=== PATIENT | female | born 1990 | race African-American/Black ===

== ENCOUNTER 2018-07-15 17:03 | Emergency (ER) | payer SELFPAY ==
[2018-07-15 17:44] LABS: #Lymphocytes 1.1 thou/uL (1.20-3.40); #Monocytes 0.4 thou/uL (0.11-0.59); %Basophils 0.3 % (0.0-1.0); %Eosinophils 0.1 % (0.0-10.0); %Lymphocytes 11.4 % (21.0-51.0); %Monocytes 4.5 % (0.0-10.0); %Neutrophils 83.7 % (42.0-75.0); Hemoglobin 13.5 g/dL (12.0-16.0); Mean Corpuscular HGB CONC 33.4 g/dL (32.0-36.0); Mean Corpuscular Hemoglobin 28.7 pg (27.0-31.0); Mean Corpuscular Volume 86.1 fL (78.0-98.0); Mean Platelet Volume 8.4 fL (7.4-10.4); Platelet Count 260 thou/uL (130-400); RBC Distribution Width 13.6 % (11.5-14.5); White Blood Cell (WBC) Count 9.5 thou/uL (4.8-10.8)
[2018-07-15 18:07] LABS: ALT (SGPT) 18 U/L (8-55); AST (SGOT) 17 U/L (5-34); Albumin 4.2 g/dL (3.5-5.0); Alkaline Phosphatase 64 U/L (40-150); Anion Gap 14 mmol/L (10-20); BUN (Urea Nitrogen) 10 mg/dL (7.0-18.7); Bilirubin, Total 0.3 mg/dL (0.2-1.2); Calc. Creatinine Clearance 0 mL/min (70-130); Calcium 9.8 mg/dL (7.8-10.44); Carbon Dioxide 20 mmol/L (22-29); Chloride 109 mmol/L (98-107); Estimated GFR-MDRD Greater than 90; Globulin 3.9 g/dL (2.4-3.5); Glucose 121 mg/dL (70-105); Lipase 14 U/L (8-78); Potassium 3.9 mmol/L (3.5-5.1); Protein, Total 8.1 g/dL (6.0-8.3); Sodium 139 mmol/L (136-145)
[2018-07-15] MEDS ORDERED: Ondansetron HCl/PF 4 MG/2 ML Vial ONE (19:13)
[2018-07-15 19:14] LABS: Bilirubin Negative (Negative); Blood, Urine Negative (Negative); Clarity CLOUDY (Clear); Glucose, Urine (Dipstick) Negative (Negative); Leukocyte Trace (Negative); Nitrite Negative (Negative); Protein, Urine (Dipstick) Trace mg/dL (Neg-Trace); Specific Gravity, Urine 1.026 (1.002-1.036)
[2018-07-15 19:16] LABS: Bacteria/HPF 1+ HPF (None Seen); Hyaline Casts/LPF 4-6 HYALINE CAST LPF (0-3 Hyaline); Pathc Cast-AUWi Flag 1.01 (0-2.49); WBC/HPF 21-50 HPF (0-3)
[2018-07-15 19:18] LABS: Pregnancy Test - Urine (BHCG) Negative (Negative); Pregu Control Background? CLEAR/WHITE (CLR/WHITE); Pregu Control Bar Appear? YES (CONTROL BAR); Specific Gravity 1.026 (1.002-1.036); Yeast-AUWi Flag 158.7 (0-25.0)
[2018-07-15 19:27] LABS: Yeast-All Forms None Seen HPF (None Seen)
[2018-07-15] MEDS ORDERED: Lidocaine Viscous Sol 2% 15 ml UD Cup ONE (19:32)
[2018-07-15] MEDS ORDERED: Mag-Al 1200 mg/1200 mg/30 ML UDCUP ONE (19:32)
--- NOTE | 2018-07-15 22:04 | ULT ---
SONOGRAM RIGHT UPPER QUADRANT 07/15/18 HISTORY: Right upper quadrant pain. FINDINGS: Multiple shadowing stones are apparent within the dependent portion of the gallbladder lumen. There i s no gallbladder wall thickening or pericholecystic fluid. Common duct is 0.5 cm. Liver is heterogene ous and echogenic without focal mass or intrahepatic biliary dilatation. No free fluid. IMPRESSION: Cholelithiasis. No evidence of acute biliary obstruction. Hepatic steatosis. POS: [facility]
[2018-07-15] MEDS ORDERED: Morphine 4 MG/ML VIAL ONE (23:03)
== END 2018-07-15 23:09 | disposition home or self-care (01) ==
LOC: ERS 17:03
DX: K80.20 Calculus of gallbladder without cholecystitis without obstruction (principal)
CPT/HCPCS: 36415; 76705; 80053; 81003; 81015; 81025; 83690; 85025; 93005; 96361; 96374; 96375; 96376; J2270; J2405

== ENCOUNTER 2018-09-03 18:38 | Emergency (ER) | payer SELFPAY ==
[2018-09-03 19:15] LABS: #Monocytes 0.6 thou/uL (0.11-0.59); #Neutrophils 5.4 thou/uL (1.40-6.50); %Basophils 0.5 % (0.0-1.0); %Eosinophils 0.5 % (0.0-10.0); %Lymphocytes 33.2 % (21.0-51.0); %Monocytes 6.6 % (0.0-10.0); %Neutrophils 59.2 % (42.0-75.0); Hemoglobin 13.2 g/dL (12.0-16.0); Mean Corpuscular HGB CONC 32.3 g/dL (32.0-36.0); Mean Corpuscular Hemoglobin 28.4 pg (27.0-31.0); Mean Platelet Volume 8.4 fL (7.4-10.4); Platelet Count 307 thou/uL (130-400); RBC Distribution Width 13.1 % (11.5-14.5); Red Blood Cell (RBC) Count 4.66 mill/uL (4.20-5.40); White Blood Cell (WBC) Count 9.1 thou/uL (4.8-10.8)
[2018-09-03 19:38] LABS: ALT (SGPT) 14 U/L (8-55); AST (SGOT) 16 U/L (5-34); Albumin 3.7 g/dL (3.5-5.0); Alkaline Phosphatase 66 U/L (40-150); Anion Gap 11 mmol/L (10-20); BUN (Urea Nitrogen) 8 mg/dL (7.0-18.7); Bilirubin, Total 0.5 mg/dL (0.2-1.2); Calc. Creatinine Clearance 0 mL/min (70-130); Calcium 9.4 mg/dL (7.8-10.44); Carbon Dioxide 25 mmol/L (22-29); Chloride 106 mmol/L (98-107); Estimated GFR-MDRD Greater than 90; Globulin 3.6 g/dL (2.4-3.5); Glucose 101 mg/dL (70-105); Lipase 28 U/L (8-78); Protein, Total 7.3 g/dL (6.0-8.3); Sodium 138 mmol/L (136-145)
[2018-09-03 19:41] LABS: BHCG - Serum Negative (NEGATIVE); Pregs Control Background? CLEAR/WHITE (CLR/WHITE); Pregs Control Bar Appear? YES (CONTROL BAR)
[2018-09-03] MEDS ORDERED: Ondansetron HCl/PF 4 MG/2 ML Vial ONE (19:45)
[2018-09-03] MEDS ORDERED: Ketorolac Tromethamine 30 MG/ML VIAL ONE (19:45)
[2018-09-03 20:06] LABS: Bilirubin Negative (Negative); Blood, Urine Negative (Negative); Clarity CLOUDY (Clear); Glucose, Urine (Dipstick) Negative (Negative); Leukocyte Trace (Negative); Nitrite Negative (Negative); Protein, Urine (Dipstick) Negative (Neg-Trace); Specific Gravity, Urine 1.015 (1.002-1.036); Urobilinogen 0.2 mg/dL (0.2-1.0); pH, Urine 7.5 (5.0-9.0)
[2018-09-03 20:08] LABS: Bacteria/HPF Rare-Few HPF (None Seen); Hyaline Casts/LPF 0-3 HYALINE CAST LPF (0-3 Hyaline); Pathc Cast-AUWi Flag 0.14 (0-2.49)
--- NOTE | 2018-09-03 20:57 | RAD ---
CHEST ONE VIEW: 09/03/18 COMPARISON: None. HISTORY: Pain. Fever and chills. FINDINGS: Normal cardiac silhouette. The pulmonary vessels and hilum are normal. No consolidation or mass. No p neumothorax or osseous abnormalities. IMPRESSION: No acute cardiopulmonary process. POS: [facility]
[2018-09-03] MEDS ORDERED: Fentanyl 100 MCG/2 ML VIAL ONE (21:03)
--- NOTE | 2018-09-03 23:23 | ULT ---
RIGHT UPPER QUADRANT ULTRASOUND: 09/03/18 INDICATION: Right upper quadrant pain with history of cholelithiasis. COMPARISON: Prior exam dated 07/15/18. FINDINGS: Overlying bowel gas heavily limits image detail. There is diffuse fatty infiltration of the liver. Th ere is a contracted gallbladder with stones. A sonographic Palomares's sign is reported. Common bile alexus t measures 3.7 mm. Right kidney measures 10.5 cm in length. The pancreas is obscured. IMPRESSION: 1. Contracted gallbladder with stones. There is report of sonographic Palomares's sign. Image detai l is heavily limited on this examination due to body habitus and overlying bowel gas. If there is fur ther clinical concern for acute cholecystitis, a HIDA scan may be helpful. 2. Fatty liver. POS: [facility]
== END 2018-09-04 00:17 | disposition home or self-care (01) ==
LOC: ERS 18:38
DX: K80.10 Calculus of gallbladder with chronic cholecystitis without obstruction (principal); E66.9 Obesity, unspecified
CPT/HCPCS: 36415; 71045; 76705; 80053; 81003; 81015; 83605; 83690; 84703; 85025; 87040; 87086; 96361; 96374; 96375; J1885; J2405; J3010

== ENCOUNTER 2019-01-31 19:15 | Emergency (ER) | payer SELFPAY ==
[2019-01-31 19:42] LABS: #Basophils 0.1 thou/uL (0.0-0.2); #Lymphocytes 3.3 thou/uL (1.20-3.40); #Monocytes 0.7 thou/uL (0.11-0.59); #Neutrophils 6.9 thou/uL (1.40-6.50); %Basophils 0.6 % (0.0-1.0); %Eosinophils 0.2 % (0.0-10.0); %Monocytes 6.5 % (0.0-10.0); %Neutrophils 62.8 % (42.0-75.0); Hemoglobin 13.3 g/dL (12.0-16.0); Mean Corpuscular HGB CONC 32.3 g/dL (32.0-36.0); Mean Corpuscular Hemoglobin 28.2 pg (27.0-31.0); Mean Corpuscular Volume 87.2 fL (78.0-98.0); Platelet Count 327 thou/uL (130-400); RBC Distribution Width 13.6 % (11.5-14.5); Red Blood Cell (RBC) Count 4.71 mill/uL (4.20-5.40); White Blood Cell (WBC) Count 11.1 thou/uL (4.8-10.8)
[2019-01-31 20:00] LABS: BHCG - Serum Negative (NEGATIVE); Pregs Control Background? CLEAR/WHITE (CLR/WHITE); Pregs Control Bar Appear? YES (CONTROL BAR)
[2019-01-31 20:23] LABS: ALT (SGPT) 16 U/L (8-55); AST (SGOT) 12 U/L (5-34); Acetaminophen Less than 6.0 mcg/mL (10.0-30.0); Albumin 4.2 g/dL (3.5-5.0); Alcohol Less than 10 mg/dL (Less than 10); Alkaline Phosphatase 68 U/L (40-150); Anion Gap 11 mmol/L (10-20); BUN (Urea Nitrogen) 5 mg/dL (7.0-18.7); Bilirubin, Total 0.4 mg/dL (0.2-1.2); Calc. Creatinine Clearance 0 mL/min (70-130); Calcium 9.6 mg/dL (7.8-10.44); Carbon Dioxide 28 mmol/L (22-29); Chloride 105 mmol/L (98-107); Estimated GFR-MDRD Greater than 90; Globulin 3.7 g/dL (2.4-3.5); Glucose 96 mg/dL (70-105); Potassium 3.8 mmol/L (3.5-5.1); Protein, Total 7.9 g/dL (6.0-8.3); Salicylate Less than 8.0 mg/dL (15.0-30.0); Sodium 140 mmol/L (136-145)
[2019-01-31 21:32] LABS: Bilirubin Negative (Negative); Blood, Urine Negative (Negative); Clarity CLOUDY (Clear); Glucose, Urine (Dipstick) Negative (Negative); Leukocyte Small (Negative); Nitrite Negative (Negative); Protein, Urine (Dipstick) Negative (Neg-Trace); Specific Gravity, Urine 1.009 (1.002-1.036); pH, Urine 7.5 (5.0-9.0)
[2019-01-31 21:33] LABS: Bacteria/HPF Rare-Few HPF (None Seen); RBC/HPF 0-3 HPF (0-3); Squamous Epithelial 0-3 HPF (0-3); WBC/HPF 0-3 HPF (0-3)
[2019-01-31 21:34] LABS: Hyaline Casts/LPF 0-3 HYALINE CAST LPF (0-3 Hyaline); Other Microscopic Description Less than 2 mL rec'd
[2019-01-31 21:40] LABS: Amphetamine Not Detected (NotDetected); Barbiturates Screen Not Detected (NotDetected); Benzodiazepine Screen Not Detected (NotDetected); Cocaine Metabolite Screen Not Detected (NotDetected); Medtox Control Line Valid? VALID (VALID); Medtox Reader # READER 1; Methadone Not Detected (NotDetected); Methamphetamine Not Detected (NotDetected); Opiate Screen Not Detected (NotDetected); Oxycodone Screen Not Detected (NotDetected); Phencyclidine (PCP) Not Detected (NotDetected); THC/Cannabinoid Screen Not Detected (NotDetected); Tricyclic Screen Not Detected (NotDetected)
[2019-01-31 22:15] LABS: Troponin I Less than 0.010 ng/mL (< 0.028)
== END 2019-02-01 00:59 | disposition home or self-care (01) ==
LOC: ERS 19:15
DX: F32.9 Major depressive disorder, single episode, unspecified (principal); F43.20 Adjustment disorder, unspecified; E66.9 Obesity, unspecified
CPT/HCPCS: 36415; 80053; 80306; 80307; 81003; 81015; 82550; 84443; 84484; 84703; 85025; 93005

== ENCOUNTER 2020-05-10 10:40 | Emergency (ER) | payer OTHER ==
[2020-05-11 12:12] LABS: SARS-CoV-2 MS2 Positive; SARS-CoV-2 N Gene Negative; SARS-CoV-2 S Gene Negative; SARS-CoV-2 orf1ab Negative
== END 2020-05-10 11:14 | disposition home or self-care (01) ==
LOC: ERS 10:40
DX: R51 Headache (principal); R50.9 Fever, unspecified; Z20.828 Contact with and (suspected) exposure to other viral communicable diseases
CPT/HCPCS: 87635; 99282; U0003

== ENCOUNTER 2022-05-01 08:41 | Outpatient (CLI) | payer OTHER | END 2022-05-01 08:42 | disposition home or self-care (01) | LOC: DTY/OP 08:41 | PROVIDERS: ATTEND Specialist | DX: E66.01 Morbid (severe) obesity due to excess calories (principal) | CPT/HCPCS: 97802 ==

== ENCOUNTER 2022-06-03 11:31 | Outpatient (CLI) | payer OTHER | END 2022-06-03 11:32 | disposition home or self-care (01) | LOC: DTY/OP 11:31 | PROVIDERS: ATTEND Specialist | DX: E66.01 Morbid (severe) obesity due to excess calories (principal) | CPT/HCPCS: 97802 ==

== ENCOUNTER 2022-07-03 10:42 | Outpatient (CLI) | payer OTHER | END 2022-07-03 10:43 | disposition home or self-care (01) | LOC: DTY/OP 10:42 | PROVIDERS: ATTEND Specialist | DX: E66.01 Morbid (severe) obesity due to excess calories (principal) | CPT/HCPCS: 97802 ==